=== PATIENT | female | born 1970 | race Caucasian/White ===

== ENCOUNTER 2023-04-03 15:39 | Outpatient (CLI) | payer OTHER, SELFPAY | END 2023-04-03 15:40 | disposition home or self-care (01) | PROVIDERS: Visit Provider Nurse Practitioner Family | DX: R30.0 Dysuria (principal); N30.91 Cystitis, unspecified with hematuria; N30.01 Acute cystitis with hematuria | CPT/HCPCS: 87086; 87186 ==

== ENCOUNTER 2024-04-03 11:30 | Outpatient (CLI) | payer OTHER, SELFPAY | END 2024-04-03 11:31 | disposition home or self-care (01) | LOC: NFLDREF 04-07 05:02 | PROVIDERS: Visit Provider Nurse Practitioner Family | DX: N30.90 Cystitis, unspecified without hematuria (principal) | CPT/HCPCS: 87086; 87186 ==